=== PATIENT | male | born 2005 | race Caucasian/White ===

== ENCOUNTER 2024-05-26 19:43 | Emergency (ER) | payer MEDICAID, SELFPAY ==
[2024-05-26 19:50] VITALS: O2SAT 94
[2024-05-26 19:57] VITALS: BP 101/51; PULSE 106; RESP 18; TEMP 37; O2SAT 94; O2SAT 99; BMI 30.5
--- NOTE | 2024-05-26 20:09 | ED_ITS ---
HPI - SOB/Dyspnea General Chief Complaint: Dyspnea Stated Complaint: in pd custody, ran from pd then had asthma attack Time Seen by Provider: 05/26/24 19:50 Source: patient Mode of arrival: ambulatory Limitations: no limitations History of Present Illness ED Provider: HPI Narrative: Patient's history of asthma was running from the PD become short of breath than wheezing does not have any inhaler complaining of chest tightness and shortness of breath Related Data Previous Rx's ?Medication ?Instructions ?Recorded albuterol sulfate 90 mcg/actuation 2 puff inhalation Q6H PRN 05/26/24 aerosol inhaler shortness of breath or wheezing #8.5 grams Allergies Allergy/AdvReac Type Severity Reaction Status Date / Time peanut Allergy Anaphylaxis Verified 05/26/24 20:03 Review of Systems Review of Systems: Yes all other systems are reviewed and are negative [facility] Social History Social History Alcohol intake: current Smoked in Last 30 Days: No Use of substances other than those prescribed or required for medical reasons: Yes Substance Use Type: Marijuana Advance Directives: No Advance Directives Information Provided: No Do you have a plan to hurt others: No Plan Physical Exam Vital Signs: Vital Signs: Last Vital Signs Temp 97.9 F 05/26/24 20:51 Pulse 112 H 05/26/24 20:51 Resp 20 05/26/24 20:51 BP 108/36 L 05/26/24 20:51 Pulse Ox 97 05/26/24 20:51 O2 Del Method Room Air 05/26/24 20:51 BMI result Body Mass Index 30.5 Appearance: Alert. Oriented X3. No acute distress. Eyes: No pallor or icterus ENT: Pharynx normal. Oral Mucosa moist Neck: Normal inspection. Neck supple. CVS: Normal heart rate and rhythm. Pulses normal. Respiratory: No respiratory distress. Equal air entry bilateral, bilateral wheeze Abdomen: Soft and nontender. Bowel sounds are present, no mass palpable, no CVA tenderness Skin: Skin warm and dry. Normal skin color. Normal skin turgor. Extremities: No lower extremity edema. No calf tenderness Neuro: Oriented X 3. No motor deficit. Medications Administered Discontinued Medications Generic Name Dose Route Start Last Admin Trade Name Freq PRN Reason Stop Dose Admin Albuterol Sulfate 4 puff 05/26/24 20:40 05/26/24 20:47 Albuterol Sulfate 90 Mcg 8 Gm Inhaler INHALE 05/26/24 20:41 4 puff ONCE ONE Administration Albuterol Sulfate 2.5 mg/ 0 mg 05/26/24 20:09 05/26/24 20:25 Albuterol/Ipratropium 3 ml INHALE 05/26/24 20:10 1 dose ONCE ONE Administration Prednisone 60 mg 05/26/24 20:09 05/26/24 20:16 Prednisone 20 Mg Tablet PO 05/26/24 20:10 60 mg ONCE ONE Administration Medical Decision Making Medical Decision Making [facility] Narrative: Patient's asthma exacerbation after running improved after nebulizing treatment will give him inhaler saturating 997% at room air Discharge Plan Discharge Clinical Impression: Asthma with exacerbation Patient Disposition: Home, Self-Care Instructions: Asthma (ED) Additional Instructions: Use inhaler as prescribed Follow with your PCP as needed Prescriptions: New albuterol sulfate 90 mcg/actuation HFA aerosol inhaler 2 puff inhalation Q6H PRN (Reason: shortness of breath or wheezing) Qty: 8.5 0RF Interventions: ED Discharge Assessment Last Done: 05/26/24 20:51 Discharge Date/Time: 05/26/24 21:00 Print Language: [place]
--- NOTE | 2024-05-26 20:12 | PC.NURSE ---
per MD Delgado no blood or EKG needed
[2024-05-26] MEDS: predniSONE 20 MG TABLET 60 MG PO (20:16)
[2024-05-26] MEDS: Albuterol Sulfate 2.5 MG, Albuterol/Iprat 2.5/0.5MG 3 ML 3 ML INHALE (20:25)
[2024-05-26 20:27] VITALS: PULSE 111; RESP 18; O2SAT 97
[2024-05-26] MEDS: Albuterol Sulfate 90 MCG 8 GM INHALER 4 PUFF INHALE (20:47)
[2024-05-26 20:48] VITALS: PULSE 125; RESP 18; O2SAT 98
[2024-05-26 20:51] VITALS: BP 108/36; PULSE 112; RESP 20; TEMP 36.6; O2SAT 97
== END 2024-05-26 21:00 | disposition home or self-care (01) ==
PROVIDERS: Emergency Provider Internal Medicine
DX: J45.901 Unspecified asthma with (acute) exacerbation (principal)
CPT/HCPCS: 94640; 99284